=== PATIENT | male | born 1985 | race Caucasian/White ===

== ENCOUNTER 2024-12-26 19:41 | Emergency (ER) | payer MEDICAID, SELFPAY ==
[2024-12-26 19:43] VITALS: BMI 27.9
[2024-12-26 20:02] VITALS: BP 126/80; PULSE 71; RESP 19; TEMP 37.2; O2SAT 97
--- NOTE | 2024-12-26 20:13 | PD.EDUPEX ---
Upper Extremity Injury RME/HPI General Chief Complaint: Extremity Problem,Nontraumatic Stated Complaint: LEFT SHOULDER PAIN AFTER LIFTING AN OBJECT Time Seen by Provider: 12/26/24 20:08 Arrival date/time: 12/26/24 19:41 39M with no significant PMH presents to ED with L shoulder and R knee pain after he had to pull his dog out from under his car because the dog wasn't cooperating. Patient denies fall/trauma. Limitations: no limitations Related Data Allergies Allergy/AdvReac Type Severity Reaction Status Date / Time No Known Allergies Allergy Verified 12/26/24 19:42 Review of Systems Review of Systems Systems Reviewed: All systems reviewed, normal except as documented Musculoskeletal Musculoskeletal: Reports as per HPI and Reports arthralgias Past Medical History Social History SMOKING STATUS: Current every day smoker ED Exam General Limitations: Present no limitations General appearance: Present alert and in no apparent distress Head Head exam: Present atraumatic Neck Neck exam: Present normal inspection, full ROM and trachea midline Chest Chest inspection: Present normal inspection and symmetric chest wall rise Expanded Upper Extremity Exam Shoulder exam: Absent tenderness (L) Neurological Exam Neurological exam: Present alert and oriented X3 Psychiatric Psychiatric exam: Present normal affect and normal mood Skin Skin exam: Present warm, dry, intact and normal color Course Quality Measures none Orders Category Date Time Status sling [Splint / Immobilizer] STAT Care 12/26/24 20:08 Active HYDROcodone*/APAP 5/325 [[place] 5/325] Med 12/26/24 20:08 Discontinued 1 tab PO X1 ONE Vital Signs Vital signs: Vital Signs Temperature 98.9 F 12/26/24 20:02 Pulse Rate 71 12/26/24 20:02 Respiratory Rate 19 12/26/24 20:02 Blood Pressure 126/80 12/26/24 20:02 Pulse Oximetry (%) 97 12/26/24 20:02 Oxygen Delivery Method Room Air 12/26/24 20:02 O2 at 97% on RA and WNLs Extremity Injury MDM Narrative MDM Narrative:: 39M with no significant PMH presents to ED with L shoulder and R knee pain after he had to pull his dog out from under his car because the dog wasn't cooperating. Patient denies fall/trauma. Physical exam reveals no obvious L shoulder tenderness. Pain is with ROM, which is limited. Height of shoulder equal bilaterally. No deformity or protrusion. R knee ROM intact. Gait mostly intact. Patient is afebrile, calm, and alert. Given sling and meds. Patient declines crutches. Patient data External records reviewed:: None Clinical information provided by:: patient Social determinants that could affect healthcare access:: none Patient has the following chronic illnesses:: none How is presenting disease/condition affected by chronic disease/condition?: no chronic disease Evaluation data The following diagnostics were reviewed and interpreted by me:: other (specify) (none) Lab and/or radiology exams considered but not ordered:: not ordered Interpretation Summary: n/a Medications / Prescriptions Medications or Prescriptions considered but not ordered:: ordered Medication administrations:: Medication Administration History Discontinued Medications Hydrocodone Bitart/Acetaminophen (Hydrocodone/Apap 5/325 Tablet) 1 tab PO X1 ONE Stop: 12/26/24 20:09 above Consultations Consultation(s) initiated? (list below): No Diagnosis Upper Extremity Injury Differential Diagnosis: dislocation of shoulder, fracture of humerus, fracture of clavicle and other (joint pain, knee derangement) Most likely diagnosis given after review of the tests above:: joint pain Admission Indicated Admission indicated?: not indicated Admission Request Was there a request for admission?: No Disposition Plan Disposition Plan: Discharge Discharge Attestation Discharge Attestation: The patient and all family members were given an opportunity to ask questions and understood the discharge instructions. Discharge instructions specifically effects, indications for sooner follow up or return to the emergency department, and the expected course of current diagnosis. Patient condition: Stable Discharge Plan Plan Patient Disposition: HOME (Self Care) Discharge Disposition comment: Stable Problem List Clinical Impression: Joint pain Patient/Caregiver Discharge Instructions Education Materials: ED Arthralgia Additional Instructions: Please follow-up with PCP within 24-48 hours and return immediately if symptoms worsen. If problem persists, recommend outpatient PT and/or MRI follow-up. In the meantime, rest, use ice/heat, and/or compression. Print Language: [place] Stand Alone Forms: Patient Portal Info Letter KELVIN/JUAN ANTONIO Supervising Physician KELVIN/JUAN ANTONIO Supervising Physician: Dr. Whitlock
[2024-12-26] MEDS: HYDROcodone/APAP 5/325 TABLET 1 TAB PO (20:16)
== END 2024-12-26 20:22 | disposition home or self-care (01) ==
PROVIDERS: Emergency Provider Emergency Medicine
DX: M25.512 Pain in left shoulder (principal)
CPT/HCPCS: 99282; A4565; A9270